=== PATIENT | female | born 1975 | race Caucasian/White ===

== ENCOUNTER 2017-07-29 11:21 | Emergency (ER) | payer MEDICARE, MEDICAID ==
[~2017-07-29] VITALS: Ht 157.5 cm; Wt 76.9 kg
[~2017-07-29 11:21] MED LIST: CLON-527 PO; DIVA500T4 PO; LEVE750T6 PO; PER5325T PO; ZOLP5TAB2 PO
[2017-07-29 12:40] LABS: BASOPHILS # (AUTO) 0.1 X10'3 (0-0.2); BASOPHILS % (AUTO) 0.6 % (0-1); EOSINOPHILS # (AUTO) 0.3 X10'3 (0-0.9); EOSINOPHILS % (AUTO) 3.2 % (0-6); HEMATOCRIT 39.6 % (35.0-45.0); HEMOGLOBIN 13.8 g/dl (12.0-16.0); LYMPHOCYTES # (AUTO) 2.6 X10'3 (1.1-4.8); LYMPHOCYTES % (AUTO) 27.5 % (21-51); MEAN CORPUSCULAR HEMOGLOBIN 30.6 PG (27.0-31.0); MEAN CORPUSCULAR HGB CONC 34.9 % (33.0-36.5); MEAN CORPUSCULAR VOLUME 87.7 FL (78-98); MEAN PLATELET VOLUME 7.2 FL (7.4-10.4); MONOCYTES # (AUTO) 0.4 X10'3 (0-0.9); MONOCYTES % (AUTO) 4.5 % (2-12); NEUTROPHILS # (AUTO) 6.1 X10'3 (1.8-7.7); NEUTROPHILS % (AUTO) 64.2 % (42-75); PLATELET COUNT 381 X10'3 (140-440); RED BLOOD COUNT 4.51 X10'6 (4.20-5.60); RED CELL DISTRIBUTION WIDTH 14.8 % (11.5-14.5); WHITE BLOOD COUNT 9.5 X10'3 (4.5-11.0)
[2017-07-29 12:41] LABS: INR 0.9 INR; PARTIAL THROMBOPLASTIN TIME 26 SECONDS (22-32); PROTHROMBIN TIME 9.4 SECONDS (9.0-12.0)
[2017-07-29 12:48] LABS: ALANINE AMINOTRANSFERASE 35 U/L (12-78); ALBUMIN 3.8 G/DL (3.4-5.0); ALKALINE PHOSPHATASE 141 IU/L (46-116); ANION GAP 10 (8-16); ASPARTATE AMINO TRANSFERASE 16 U/L (10-37); BILIRUBIN,TOTAL 0.2 MG/DL (0.1-1.0); BLOOD UREA NITROGEN 12 MG/DL (7-18); BUN/CREATININE RATIO 17.1 (6.6-38.0); CALCIUM 8.8 MG/DL (8.5-10.1); CHLORIDE 107 MMOL/L (99-107); GLUCOSE 127 MG/DL (70-104); POTASSIUM 3.3 MMOL/L (3.5-5.1); SODIUM 141 MMOL/L (135-145); TOTAL CARBON DIOXIDE 23.9 MMOL/L (24-32); TOTAL PROTEIN 7.6 G/DL (6.4-8.2); eGFR > 90 ML/MIN
[2017-07-29] MEDS ORDERED: acetaminophen 325mg tablet PO ONE (14:30)
[2017-07-29] MEDS ORDERED: dexamethasone 4mg/ml inj IV SCH (14:30)
[2017-07-29] MEDS ORDERED: dexamethasone 4mg/ml inj IV ONE (14:30)
[2017-07-29] MEDS ORDERED: magnesium 2GM in 50ml NS 50 ML IV ONE (14:30)
[2017-07-29] MEDS ORDERED: normal saline 1000ML IV soln IVB ONE (14:30)
[2017-07-29] MEDS ORDERED: ketorolac trometh. 30mg/ml inj. IV ONE (14:30)
[2017-07-29] MEDS ORDERED: meclizine 12.5mg tablet PO ONE (14:30)
[2017-07-29] MEDS ORDERED: aspirin 325mg tablet PO ONE (14:30)
[2017-07-29 16:10] LABS: CLARITY,URINE CLEAR (Clear); COLOR,URINE YELLOW (Yellow); GLUCOSE, URINE NEGATIVE (Neg); KETONES,URINE NEGATIVE (Neg); LEUKOCYTE ESTERASE ,URINE NEGATIVE (Neg); NITRITES, URINE NEGATIVE (Neg); OCCULT BLOOD,URINE NEGATIVE (Neg); PROTEIN,URINE NEGATIVE (Neg); UROBILINOGEN,URINE 0.2 E.U/dL (0.2-1.0)
[2017-07-29 16:15] LABS: UA COLLECTION TYPE CLN CATCH MIDSTREAM
[2017-07-29 16:23] LABS: URINE HCG NEGATIVE (NEG)
[2017-07-29] MEDS ORDERED: morphine 2 MG/ML inj. syringe IV ONE (16:25)
[2017-07-29 17:06] VITALS: BP 133/83
== END 2017-07-29 17:14 | disposition home or self-care (01) ==
LOC: ER 11:22
DX: R07.9 Chest pain, unspecified (principal); G43.909 Migraine, unspecified, not intractable, without status migrainosus; I10 Essential (primary) hypertension; G89.29 Other chronic pain; Z85.3 Personal history of malignant neoplasm of breast; Z98.51 Tubal ligation status; Z90.710 Acquired absence of both cervix and uterus; Z88.8 Allergy status to other drugs, medicaments and biological substances; Z79.899 Other long term (current) drug therapy
CPT/HCPCS: 36415; 71045; 80053; 81003; 81025; 84484; 85025; 85610; 85730; 93005; 96365; 96366; 96375; 99285; J1100; J1885; J2270; J3475; J7030; J8597

== ENCOUNTER 2017-08-04 13:40 | Emergency (ER) | payer MEDICARE, MEDICAID ==
[~2017-08-04] VITALS: Ht 170.2 cm; Wt 79.5 kg
[2017-08-04 14:03] LABS: BASOPHILS % (AUTO) 0.4 % (0-1); EOSINOPHILS # (AUTO) 0.1 X10'3 (0-0.9); EOSINOPHILS % (AUTO) 1.6 % (0-6); HEMATOCRIT 40.6 % (35.0-45.0); HEMOGLOBIN 14.4 g/dl (12.0-16.0); LYMPHOCYTES # (AUTO) 2.8 X10'3 (1.1-4.8); LYMPHOCYTES % (AUTO) 32.1 % (21-51); MEAN CORPUSCULAR HEMOGLOBIN 30.8 PG (27.0-31.0); MEAN CORPUSCULAR HGB CONC 35.3 % (33.0-36.5); MEAN CORPUSCULAR VOLUME 87.2 FL (78-98); MEAN PLATELET VOLUME 7.2 FL (7.4-10.4); MONOCYTES # (AUTO) 0.3 X10'3 (0-0.9); MONOCYTES % (AUTO) 3.6 % (2-12); NEUTROPHILS # (AUTO) 5.4 X10'3 (1.8-7.7); NEUTROPHILS % (AUTO) 62.3 % (42-75); PLATELET COUNT 407 X10'3 (140-440); RED BLOOD COUNT 4.66 X10'6 (4.20-5.60); WHITE BLOOD COUNT 8.7 X10'3 (4.5-11.0)
[2017-08-04 14:19] LABS: ALANINE AMINOTRANSFERASE 29 U/L (12-78); ALKALINE PHOSPHATASE 135 IU/L (46-116); ANION GAP 11 (8-16); ASPARTATE AMINO TRANSFERASE 13 U/L (10-37); BILIRUBIN,TOTAL 0.2 MG/DL (0.1-1.0); BLOOD UREA NITROGEN 8 MG/DL (7-18); CALCIUM 8.8 MG/DL (8.5-10.1); CHLORIDE 108 MMOL/L (99-107); ETHANOL 0.047 GM/DL (0.0-0.010); GLUCOSE 134 MG/DL (70-104); POTASSIUM 3.3 MMOL/L (3.5-5.1); SODIUM 141 MMOL/L (135-145); TOTAL PROTEIN 7.9 G/DL (6.4-8.2); eGFR 78 ML/MIN
[2017-08-04] MEDS ORDERED: haloperidol lactate 5mg/ml inj IM ONE ×2 (15:05→15:07)
[2017-08-04] MEDS ORDERED: diphenhydrAMINE 50 mg/ml inj IM ONE (15:05)
[2017-08-04] MEDS ORDERED: LORazepam 2 mg/ml vial IV ONE (15:05)
[2017-08-04 16:19] LABS: URINE HCG NEGATIVE (NEG)
[2017-08-04 16:25] LABS: ACETAMINOPHEN < 2.0 UG/ML (10-30)
[2017-08-04 16:44] LABS: URINE AMPHETAMINE SCREEN NEGATIVE (Neg); URINE BARBITUATE SCREEN NEGATIVE (Neg); URINE BENZODIAZEPINES SCREEN NEGATIVE (Neg); URINE CANNABINOID SCREEN NEGATIVE (Neg); URINE COCAINE SCREEN NEGATIVE (Neg); URINE METHADONE SCREEN NEGATIVE (Neg); URINE OPIATE SCREEN POSITIVE (Neg); URINE PHENCYCLIDINE SCREEN NEGATIVE (Neg)
[2017-08-05] MEDS ORDERED: quetiapine 100mg tablet PO ONE (04:00)
[2017-08-05] MEDS ORDERED: acetaminophen 325mg tablet PO PRN (07:40)
[2017-08-05] MEDS ORDERED: DIPH25CA83 PO (08:58)
[2017-08-05] MEDS ORDERED: TRAZ-146 PO (08:58)
[2017-08-05] MEDS ORDERED: TOPI100T18 PO (08:59)
[2017-08-05] MEDS ORDERED: HYDR-565 PO (09:00)
[2017-08-05] MEDS ORDERED: DIPH50CA37 PO (09:04)
[2017-08-05] MEDS ORDERED: potassium Cl 20 mEq SR tablet PO STA (09:33)
[2017-08-05] MEDS ORDERED: SUMA100T16 PO (09:39)
[2017-08-05] MEDS ORDERED: ONDA8TAB9 PO (09:51)
[2017-08-05] MEDS ORDERED: SUMAtriptan 25 MG tablet PO PRN (11:00)
[2017-08-05] MEDS ORDERED: HYDROcodone/acetaminophen 10/325mg tab PO PRN (11:00)
[2017-08-05] MEDS ORDERED: ondansetron 4mg rapidly disintigrating tab PO PRN (11:00)
[2017-08-05] MEDS ORDERED: diphenhydrAMINE 25mg capsule PO PRN (11:00)
[2017-08-05 13:01] LABS: ALANINE AMINOTRANSFERASE 27 U/L (12-78); ALBUMIN 4.2 G/DL (3.4-5.0); ALBUMIN/GLOBULIN RATIO 1.1 (1.1-1.5); ALKALINE PHOSPHATASE 154 IU/L (46-116); ASPARTATE AMINO TRANSFERASE 17 U/L (10-37); BILIRUBIN,DIRECT 0.1 MG/DL (0-0.3); BILIRUBIN,TOTAL 0.4 MG/DL (0.1-1.0); TOTAL PROTEIN 8.1 G/DL (6.4-8.2)
[2017-08-05 15:21] VITALS: BP 106/73
[2017-08-05] MEDS ORDERED: topiramate 100mg tablet PO SCH (20:00)
[2017-08-05] MEDS ORDERED: quetiapine 100mg tablet PO SCH (21:00)
[2017-08-05] MEDS ORDERED: levetiracetam 250mg tablet PO SCH (21:00)
[2017-08-05] MEDS ORDERED: diphenhydrAMINE 25mg capsule PO SCH (21:00)
[2017-08-06] MEDS ORDERED: traZODone 50mg tablet PO SCH (08:00)
== END 2017-08-05 15:25 ==
LOC: ER 13:45
DX: T42.6X2A Poisoning by other antiepileptic and sedative-hypnotic drugs, intentional self-harm, initial encounter (principal); G43.909 Migraine, unspecified, not intractable, without status migrainosus; I10 Essential (primary) hypertension; G89.29 Other chronic pain; Z90.710 Acquired absence of both cervix and uterus; Z85.3 Personal history of malignant neoplasm of breast; Z88.8 Allergy status to other drugs, medicaments and biological substances; Z79.899 Other long term (current) drug therapy; Y92.89 Other specified places as the place of occurrence of the external cause
CPT/HCPCS: 36415; 73130; 80053; 80076; 80305; 80320; 80329; 81025; 85025; 96372; 96374; 99285; J1200; J1630; J2060

== ENCOUNTER 2017-12-23 11:35 | Emergency (ER) | payer MEDICARE, MEDICAID ==
[~2017-12-23] VITALS: Ht 162.6 cm; Wt 68.0 kg
[~2017-12-23 11:35] MED LIST changes: -CLON-527 PO; +DIPH25CA83 PO; +DIPH50CA37 PO; -DIVA500T4 PO; +HYDR-565 PO; +ONDA8TAB9 PO; -PER5325T PO; +SUMA100T16 PO; +TOPI100T18 PO; +TRAZ-146 PO; -ZOLP5TAB2 PO
[2017-12-23 11:59] VITALS: BP 171/110
[2017-12-23] MEDS ORDERED: metoclopramide 5 mg/ml inj IV ONE (16:35)
[2017-12-23] MEDS ORDERED: ketorolac tromethamine 15mg/ml inj. IM ONE (16:35)
[2017-12-23] MEDS ORDERED: diphenhydrAMINE 25mg capsule PO ONE (16:35)
[2017-12-23] MEDS ORDERED: levetiracetam 250mg tablet PO ONE ×2 (18:15→18:20)
[2017-12-23] MEDS ORDERED: topiramate 100mg tablet PO ONE ×2 (18:15→18:20)
== END 2017-12-23 20:18 | disposition home or self-care (01) ==
LOC: ER 11:36
DX: G43.909 Migraine, unspecified, not intractable, without status migrainosus (principal); I10 Essential (primary) hypertension; G89.29 Other chronic pain; F32.9 Major depressive disorder, single episode, unspecified; Z85.3 Personal history of malignant neoplasm of breast; Z98.51 Tubal ligation status; Z90.710 Acquired absence of both cervix and uterus; F17.210 Nicotine dependence, cigarettes, uncomplicated; Z88.8 Allergy status to other drugs, medicaments and biological substances
CPT/HCPCS: 96372; 96374; 99284; J1885; J2765; Q0163

== ENCOUNTER 2017-12-30 15:29 | Emergency (ER) | payer MEDICARE, MEDICAID ==
[~2017-12-30] VITALS: Ht 162.6 cm; Wt 75.0 kg
[2017-12-30 15:43] VITALS: BP 141/62
[2017-12-30] MEDS ORDERED: LORazepam 1 MG tablet PO ONE (15:50)
== END 2017-12-30 15:58 | disposition home or self-care (01) ==
LOC: ER 15:30
DX: G43.909 Migraine, unspecified, not intractable, without status migrainosus (principal); I10 Essential (primary) hypertension; G89.29 Other chronic pain; Z85.3 Personal history of malignant neoplasm of breast; Z90.710 Acquired absence of both cervix and uterus; Z98.890 Other specified postprocedural states; Z88.8 Allergy status to other drugs, medicaments and biological substances; Z79.899 Other long term (current) drug therapy
CPT/HCPCS: 99282

== ENCOUNTER 2018-02-21 12:00 | Emergency (ER) | payer MEDICARE, MEDICAID ==
[~2018-02-21] VITALS: Ht 565.3 cm; Wt 74.7 kg
[~2018-02-21 12:00] MED LIST changes: -TRAZ-146 PO; +TRAZ-219 PO
[2018-02-21 12:09] VITALS: BP 167/110
== END 2018-02-21 12:35 | disposition home or self-care (01) ==
LOC: ER 12:01
DX: F07.81 Postconcussional syndrome (principal); G89.29 Other chronic pain; R51 Headache; G43.909 Migraine, unspecified, not intractable, without status migrainosus; I10 Essential (primary) hypertension; Z90.710 Acquired absence of both cervix and uterus; Z90.89 Acquired absence of other organs; Z88.8 Allergy status to other drugs, medicaments and biological substances; Z88.6 Allergy status to analgesic agent; Z79.899 Other long term (current) drug therapy
CPT/HCPCS: 99281

== ENCOUNTER 2018-09-19 19:30 | Emergency (ER) | payer MEDICARE, MEDICAID ==
[~2018-09-19] VITALS: Ht 162.6 cm; Wt 75.0 kg
[~2018-09-19 19:30] MED LIST changes: +HYDR-4353 PO; -HYDR-565 PO; +TOP100T PO; -TOPI100T18 PO
[2018-09-19] MEDS ORDERED: normal saline 1000ML IV soln IVB ONE (20:20)
[2018-09-19] MEDS ORDERED: dexamethasone sod phosphate 10mg/ml inj IV STA (20:20)
[2018-09-19] MEDS ORDERED: ketorolac trometh. 30mg/ml inj. IV ONE (20:20)
[2018-09-19] MEDS ORDERED: ondansetron/PF 4mg/2ml inj IV ONE (20:20)
[2018-09-19] MEDS ORDERED: LORazepam 2 mg/ml vial IV ONE (20:20)
[2018-09-19 21:03] VITALS: BP 166/93
== END 2018-09-19 21:15 | disposition home or self-care (01) ==
LOC: ER 19:45
DX: G43.909 Migraine, unspecified, not intractable, without status migrainosus (principal); I10 Essential (primary) hypertension; G89.29 Other chronic pain; Z90.710 Acquired absence of both cervix and uterus; Z98.51 Tubal ligation status; Z90.49 Acquired absence of other specified parts of digestive tract; Z90.12 Acquired absence of left breast and nipple; Z88.6 Allergy status to analgesic agent; Z88.8 Allergy status to other drugs, medicaments and biological substances
CPT/HCPCS: 96374; 96375; 99283; J1100; J1885; J2060; J2405; J7030

== ENCOUNTER 2019-01-20 13:15 | Emergency (ER) | payer MEDICARE, MEDICAID ==
[~2019-01-20] VITALS: Ht 160 cm; Wt 73.5 kg
[2019-01-20 13:36] VITALS: BP 169/105
[2019-01-20] MEDS ORDERED: diphenhydrAMINE 50 mg/ml inj IV ONE (15:15)
[2019-01-20] MEDS ORDERED: normal saline 1000ML IV soln IVB ONE (15:15)
[2019-01-20] MEDS ORDERED: acetaminophen 325mg tablet PO ONE ×2 (15:20)
[2019-01-20] MEDS: metoclopramide 5 mg/ml inj IV ONE ×2 (15:43→15:50)
[2019-01-20] MEDS ORDERED: LORazepam 2 mg/ml vial IV ONE (15:55)
[2019-01-20] MEDS ORDERED: ketorolac tromethamine 15mg/ml inj. IV ONE (15:55)
--- NOTE | 2019-01-20 17:10 | NUR ---
PT REPORTED 3 TIMEDS THAT HER SON WAS GOING TO PICK HER UP DUE TO MEDICATIONS THAT WE WERE GIVING HER. I WALKED PT OUT TO THE VICE PRESIDENT OF SOFTWARE [employer]INEER[employer] OF THE ER AND LOST DIGHT OF HER IN THE PARKING LOT, I WALKED TO THE AMBULANCE BAY AND SAW THE PT GET INTO A WHITE MUSTANG WITH WHITE CONVERTABLE TOP AND LEAVE THE ER PARKING LOT. [facility] WAS NOTIFIED AT .
== END 2019-01-20 17:29 | disposition home or self-care (01) ==
LOC: ER 13:16
DX: G43.709 Chronic migraine without aura, not intractable, without status migrainosus (principal); I10 Essential (primary) hypertension; G89.29 Other chronic pain; F32.9 Major depressive disorder, single episode, unspecified; Z86.69 Personal history of other diseases of the nervous system and sense organs; Z90.710 Acquired absence of both cervix and uterus; Z90.89 Acquired absence of other organs; Z98.51 Tubal ligation status; Z98.890 Other specified postprocedural states; Z90.12 Acquired absence of left breast and nipple; Z85.3 Personal history of malignant neoplasm of breast; Z88.6 Allergy status to analgesic agent; Z88.8 Allergy status to other drugs, medicaments and biological substances; Z79.899 Other long term (current) drug therapy
CPT/HCPCS: 96374; 96375; 99283; J1200; J1885; J2060; J2765; J7030; 99284

== ENCOUNTER 2019-04-20 16:28 | Emergency (ER) | payer MEDICARE, MEDICAID ==
[~2019-04-20] VITALS: Ht 160 cm; Wt 77.9 kg
[2019-04-20 18:14] LABS: BASOPHILS # (AUTO) 0.1 X10'3 (0-0.2); EOSINOPHILS # (AUTO) 0.2 X10'3 (0-0.9); EOSINOPHILS % (AUTO) 1.7 % (0-6); HEMATOCRIT 40.1 % (35.0-45.0); HEMOGLOBIN 13.9 g/dl (12.0-16.0); LYMPHOCYTES # (AUTO) 2.8 X10'3 (1.1-4.8); LYMPHOCYTES % (AUTO) 27.5 % (21-51); MEAN CORPUSCULAR HEMOGLOBIN 30.4 PG (27.0-31.0); MEAN CORPUSCULAR HGB CONC 34.6 g/dL (33.0-36.5); MEAN CORPUSCULAR VOLUME 87.9 FL (78-98); MEAN PLATELET VOLUME 7.3 FL (7.4-10.4); MONOCYTES # (AUTO) 0.4 X10'3 (0-0.9); MONOCYTES % (AUTO) 4.1 % (2-12); NEUTROPHILS # (AUTO) 6.6 X10'3 (1.8-7.7); NEUTROPHILS % (AUTO) 65.7 % (42-75); PLATELET COUNT 395 X10'3 (140-440); RED BLOOD COUNT 4.56 X10'6 (4.20-5.60); RED CELL DISTRIBUTION WIDTH 14.8 % (11.5-14.5)
[2019-04-20 18:29] LABS: ALANINE AMINOTRANSFERASE 32 U/L (12-78); ALBUMIN 3.9 G/DL (3.4-5.0); ALBUMIN/GLOBULIN RATIO 0.9 (1.1-1.5); ALKALINE PHOSPHATASE 134 IU/L (46-116); ANION GAP 14 (8-16); ASPARTATE AMINO TRANSFERASE 16 U/L (10-37); BILIRUBIN,TOTAL 0.2 MG/DL (0.1-1.0); BLOOD UREA NITROGEN 7 MG/DL (7-18); BUN/CREATININE RATIO 8.9 (6.6-38.0); CALCIUM 9.2 MG/DL (8.5-10.1); CHLORIDE 105 MMOL/L (99-107); CREATININE 0.79 MG/DL (0.40-0.90); GLUCOSE 141 MG/DL (70-104); SODIUM 141 MMOL/L (135-145); TOTAL PROTEIN 8.3 G/DL (6.4-8.2); eGFR 79 ML/MIN
[2019-04-20 19:00] LABS: CLARITY,URINE CLEAR (Clear); COLOR,URINE YELLOW (Yellow); GLUCOSE, URINE NEGATIVE (Neg); KETONES,URINE NEGATIVE (Neg); LEUKOCYTE ESTERASE ,URINE NEGATIVE (Neg); NITRITES, URINE NEGATIVE (Neg); OCCULT BLOOD,URINE NEGATIVE (Neg); PH,URINE 6.5 (4.8-8.0); PROTEIN,URINE NEGATIVE (Neg); UROBILINOGEN,URINE 0.2 E.U/dL (0.2-1.0)
[2019-04-20 19:02] LABS: UA COLLECTION TYPE CLN CATCH MIDSTREAM
[2019-04-20] MEDS ORDERED: potassium Cl 20 mEq SR tablet PO STA (19:31)
[2019-04-20] MEDS ORDERED: diphenhydrAMINE 50 mg/ml inj IV ONE (19:45)
[2019-04-20] MEDS ORDERED: aspirin 325mg tablet PO ONE (19:45)
[2019-04-20] MEDS ORDERED: metoclopramide 5 mg/ml inj IV ONE (19:45)
[2019-04-20] MEDS ORDERED: ketorolac trometh. 30mg/ml inj. IV ONE (19:45)
[2019-04-20] MEDS ORDERED: normal saline 1000ml 1,000 ML IV ONE (19:45)
[2019-04-20] MEDS ORDERED: magnesium 2GM in 50ml NS 50 ML IV ONE (19:45)
[2019-04-20 20:55] VITALS: BP 134/85
== END 2019-04-20 21:02 | disposition home or self-care (01) ==
LOC: ER 16:29
DX: G43.909 Migraine, unspecified, not intractable, without status migrainosus (principal); I10 Essential (primary) hypertension; G89.29 Other chronic pain; F32.9 Major depressive disorder, single episode, unspecified; Z85.3 Personal history of malignant neoplasm of breast; Z86.69 Personal history of other diseases of the nervous system and sense organs; Z90.710 Acquired absence of both cervix and uterus; Z90.89 Acquired absence of other organs; Z98.51 Tubal ligation status; Z98.890 Other specified postprocedural states; Z88.6 Allergy status to analgesic agent; Z88.8 Allergy status to other drugs, medicaments and biological substances; Z79.899 Other long term (current) drug therapy
CPT/HCPCS: 36415; 70450; 80053; 81003; 85025; 85610; 96365; 96366; 96375; 99284; J1200; J1885; J2765; J3475; J7030

== ENCOUNTER 2020-04-26 19:36 | Emergency (ER) | payer MEDICARE, MEDICAID ==
[~2020-04-26] VITALS: Ht 160 cm; Wt 76.0 kg
[~2020-04-26 19:36] MED LIST changes: -TRAZ-219 PO; +TRAZ-256 PO
[2020-04-26] MEDS ORDERED: normal saline 1000ml 1,000 ML IV ONE ×2 (20:20)
[2020-04-26] MEDS ORDERED: metoclopramide 5 mg/ml inj IV ONE (20:20)
[2020-04-26] MEDS ORDERED: ondansetron 4mg rapidly disintigrating tab PO ONE (20:20)
[2020-04-26] MEDS ORDERED: diphenhydrAMINE 50 mg/ml inj IV ONE (20:20)
[2020-04-26 21:20] VITALS: BP 135/74
[2020-04-26] MEDS ORDERED: ketorolac tromethamine 15mg/ml inj. IV ONE (21:40)
[2020-04-26] MEDS ORDERED: LORazepam 2 mg/ml vial IV ONE (22:25)
== END 2020-04-26 23:21 | disposition home or self-care (01) ==
LOC: ER 19:39
DX: G43.909 Migraine, unspecified, not intractable, without status migrainosus (principal); I10 Essential (primary) hypertension; G89.29 Other chronic pain; F32.9 Major depressive disorder, single episode, unspecified; Z98.51 Tubal ligation status; Z90.710 Acquired absence of both cervix and uterus; Z98.890 Other specified postprocedural states; Z88.8 Allergy status to other drugs, medicaments and biological substances; Z79.899 Other long term (current) drug therapy
CPT/HCPCS: 96361; 96374; 96375; 99284; J1200; J1885; J2060; J2765; J7030

== ENCOUNTER 2020-04-27 11:55 | Emergency (ER) | payer MEDICARE, MEDICAID ==
[~2020-04-27] VITALS: Ht 162.6 cm; Wt 75.0 kg
[2020-04-27] MEDS ORDERED: dexamethasone sod phosphate 10mg/ml inj IV STA (12:53)
[2020-04-27] MEDS ORDERED: normal saline 1000ML IV soln IVB ONE (12:55)
[2020-04-27] MEDS ORDERED: diphenhydrAMINE 50 mg/ml inj IV ONE (12:55)
[2020-04-27] MEDS ORDERED: proCHLORperazine 10 MG/2 ml inj IV ONE (12:55)
[2020-04-27] MEDS ORDERED: LIDOcaine 4% (40 mg/ml) topical solution 50ml TP ONE (12:55)
[2020-04-27 13:59] VITALS: BP 146/95
[2020-04-27] MEDS ORDERED: ketorolac tromethamine 15mg/ml inj. IV ONE (14:05)
[2020-04-27] MEDS ORDERED: morphine 4 MG/ML inj SYRINge IV ONE (14:45)
== END 2020-04-27 15:50 | disposition home or self-care (01) ==
LOC: ER 11:56
DX: R51.9 Headache, unspecified (principal); R11.0 Nausea; H53.149 Visual discomfort, unspecified; I10 Essential (primary) hypertension; G89.29 Other chronic pain; F32.9 Major depressive disorder, single episode, unspecified; Z90.710 Acquired absence of both cervix and uterus; Z98.51 Tubal ligation status; Z98.890 Other specified postprocedural states; Z88.8 Allergy status to other drugs, medicaments and biological substances; Z79.899 Other long term (current) drug therapy
CPT/HCPCS: 70250; 72082; 96361; 96374; 96375; 99284; J1100; J1200; J1885; J2270; J7030

== ENCOUNTER 2021-05-08 18:37 | Emergency (ER) | payer MEDICARE, MEDICAID ==
[~2021-05-08] VITALS: Ht 160 cm; Wt 77.3 kg
[2021-05-08 20:10] LABS: BASOPHILS # (AUTO) 0.1 X10'3 (0-0.2); BASOPHILS % (AUTO) 0.7 % (0-1); EOSINOPHILS # (AUTO) 0.2 X10'3 (0-0.9); EOSINOPHILS % (AUTO) 2.6 % (0-6); HEMATOCRIT 36.7 % (35.0-45.0); HEMOGLOBIN 12.7 g/dl (12.0-16.0); LYMPHOCYTES # (AUTO) 2.9 X10'3 (1.1-4.8); LYMPHOCYTES % (AUTO) 38.2 % (21-51); MEAN CORPUSCULAR HEMOGLOBIN 29.8 PG (27.0-31.0); MEAN CORPUSCULAR HGB CONC 34.7 g/dL (33.0-36.5); MEAN CORPUSCULAR VOLUME 85.9 FL (78-98); MEAN PLATELET VOLUME 7.4 FL (7.4-10.4); MONOCYTES # (AUTO) 0.4 X10'3 (0-0.9); MONOCYTES % (AUTO) 4.7 % (2-12); NEUTROPHILS # (AUTO) 4.1 X10'3 (1.8-7.7); NEUTROPHILS % (AUTO) 53.8 % (42-75); PLATELET COUNT 338 X10'3 (140-440); RED BLOOD COUNT 4.28 X10'6 (4.20-5.60); RED CELL DISTRIBUTION WIDTH 14.2 % (11.5-14.5); WHITE BLOOD COUNT 7.7 X10'3 (4.5-11.0)
[2021-05-08 20:28] LABS: ALANINE AMINOTRANSFERASE 20 U/L (12-78); ALBUMIN 3.4 G/DL (3.4-5.0); ALBUMIN/GLOBULIN RATIO 0.9 (1.1-1.5); ALKALINE PHOSPHATASE 118 IU/L (46-116); ANION GAP 10 (8-16); ASPARTATE AMINO TRANSFERASE 13 U/L (10-37); BILIRUBIN,TOTAL 0.1 MG/DL (0.1-1.0); BLOOD UREA NITROGEN 8 MG/DL (7-18); BUN/CREATININE RATIO 8.9 (6.6-38.0); CALCIUM 8.5 MG/DL (8.5-10.1); CHLORIDE 107 MMOL/L (99-107); GLUCOSE 170 MG/DL (70-104); POTASSIUM 3.1 MMOL/L (3.5-5.1); SODIUM 139 MMOL/L (135-145); TOTAL CARBON DIOXIDE 21.8 MMOL/L (24-32); TOTAL PROTEIN 7.3 G/DL (6.4-8.2); eGFR 67 ML/MIN
[2021-05-08 22:38] VITALS: BP 139/79
[2021-05-08] MEDS ORDERED: HYDROcodone/acetaminophen 5mg/325mg tablet PO ONE (23:25)
== END 2021-05-09 00:57 | disposition home or self-care (01) ==
LOC: ER 18:39
DX: R07.89 Other chest pain (principal); G43.909 Migraine, unspecified, not intractable, without status migrainosus; I10 Essential (primary) hypertension; G89.29 Other chronic pain; F32.9 Major depressive disorder, single episode, unspecified; Z86.69 Personal history of other diseases of the nervous system and sense organs; Z85.3 Personal history of malignant neoplasm of breast; Z90.710 Acquired absence of both cervix and uterus; Z98.51 Tubal ligation status; Z98.890 Other specified postprocedural states; Z88.8 Allergy status to other drugs, medicaments and biological substances; Z88.6 Allergy status to analgesic agent; Z79.899 Other long term (current) drug therapy
CPT/HCPCS: 36415; 71045; 80053; 84484; 85025; 93005; 99285

== ENCOUNTER 2022-01-13 21:36 | Emergency (ER) | payer MEDICARE, MEDICAID ==
[~2022-01-13] VITALS: Ht 160 cm; Wt 77.0 kg
--- NOTE | 2022-01-13 23:54 | NUR ---
PT C/O RT FACE NUMBNESS NOW, NO SLURRED SPEECH, NO ARM DRIFT, NO FACIAL DROOP, "HEADACHE IS GETTING WORSE"
[2022-01-14] MEDS ORDERED: ketorolac trometh inj. 60 MG/2 ML VIAL IM ONE (01:30)
[2022-01-14] MEDS ORDERED: diphenhydrAMINE 50 mg/ml inj IM ONE (01:30)
[2022-01-14] MEDS ORDERED: ondansetron 4mg rapidly disintigrating tab PO ONE (01:30)
[2022-01-14 03:38] VITALS: BP 174/102
== END 2022-01-14 03:41 | disposition home or self-care (01) ==
LOC: ER 21:37
DX: G43.909 Migraine, unspecified, not intractable, without status migrainosus (principal); I10 Essential (primary) hypertension; G89.29 Other chronic pain; F32.9 Major depressive disorder, single episode, unspecified; Z90.710 Acquired absence of both cervix and uterus; Z90.89 Acquired absence of other organs; Z98.51 Tubal ligation status; Z98.890 Other specified postprocedural states; Z88.8 Allergy status to other drugs, medicaments and biological substances; Z88.6 Allergy status to analgesic agent; Z79.899 Other long term (current) drug therapy
CPT/HCPCS: 96372; 99284; J1200; J1885

== ENCOUNTER 2022-02-02 20:09 | Emergency (ER) | payer MEDICARE, MEDICAID ==
[~2022-02-02] VITALS: Ht 160 cm; Wt 77.3 kg
[2022-02-02] MEDS ORDERED: TRAZ300T2 PO (23:17)
[2022-02-02] MEDS ORDERED: METO10TA3 (23:17)
[2022-02-03] MEDS ORDERED: diphenhydrAMINE 25mg capsule PO ONE (01:05)
[2022-02-03] MEDS ORDERED: ketorolac trometh. 30mg/ml inj. IM ONE (01:05)
[2022-02-03] MEDS ORDERED: metoclopramide 5 mg/ml inj IM ONE (01:05)
[2022-02-03 01:25] VITALS: BP 134/99
[2022-02-03] MEDS ORDERED: HYDROcodone/acetaminophen 10/325mg tab PO ONE (01:30)
== END 2022-02-03 01:37 | disposition home or self-care (01) ==
LOC: ER 20:11
DX: G43.909 Migraine, unspecified, not intractable, without status migrainosus (principal); G40.909 Epilepsy, unspecified, not intractable, without status epilepticus; I10 Essential (primary) hypertension; G89.29 Other chronic pain; F17.200 Nicotine dependence, unspecified, uncomplicated; Z90.12 Acquired absence of left breast and nipple; Z90.710 Acquired absence of both cervix and uterus; Z85.9 Personal history of malignant neoplasm, unspecified; Z98.51 Tubal ligation status; Z88.8 Allergy status to other drugs, medicaments and biological substances; Z79.899 Other long term (current) drug therapy
CPT/HCPCS: 96372; 99284; J1885; J2765; Q0163

== ENCOUNTER 2022-09-28 20:57 | Emergency (ER) | payer MEDICARE, MEDICAID ==
[~2022-09-28] VITALS: Ht 162.6 cm; Wt 79.5 kg
[~2022-09-28 20:57] MED LIST changes: -DIPH25CA83 PO; +METO10TA3; -TRAZ-256 PO; +TRAZ300T2 PO
[2022-09-28 21:06] VITALS: BP 161/95
[2022-09-28] MEDS ORDERED: AZIT-31 PO (23:13)
[2022-09-28] MEDS ORDERED: azithromycin 250mg tablet PO ONE (23:15)
[2022-09-28] MEDS ORDERED: ketorolac trometh inj. 60 MG/2 ML VIAL IM ONE (23:15)
== END 2022-09-28 23:37 | disposition home or self-care (01) ==
LOC: ER 20:58
DX: J32.9 Chronic sinusitis, unspecified (principal); I10 Essential (primary) hypertension; G43.909 Migraine, unspecified, not intractable, without status migrainosus; Z88.8 Allergy status to other drugs, medicaments and biological substances; Z98.51 Tubal ligation status
CPT/HCPCS: 71046; 96372; 99283; J1885

== ENCOUNTER 2022-12-24 20:40 | Emergency (ER) | payer MEDICARE, MEDICAID ==
[~2022-12-24] VITALS: Ht 160 cm; Wt 78.4 kg
[2022-12-25] MEDS ORDERED: DOXYCYCLINE 100MG CAPSULE PO STA (00:31)
[2022-12-25] MEDS ORDERED: DOXY-356 PO (00:32)
[2022-12-25] MEDS ORDERED: diphenhydrAMINE 50 mg/ml inj IM STA (00:41)
[2022-12-25] MEDS ORDERED: proCHLORperazine 10 MG/2 ml inj IM STA (00:41)
--- NOTE | 2022-12-25 00:42 | NUR ---
upon dc pt very upset she didn't tell the doctor about her migraine. pt states she has taken ibuprofen, tylenol, imitrex. PA made aware and meds ordered.
[2022-12-25] MEDS ORDERED: ketorolac trometh. 30mg/ml inj. IM STA (00:44)
--- NOTE | 2022-12-25 00:44 | NUR ---
she cannot have compazine, so switched it to torodol after talking to PA about this.
[2022-12-25 00:53] VITALS: BP 125/74
== END 2022-12-25 00:54 | disposition home or self-care (01) ==
LOC: ER 20:40
DX: S80.862A Insect bite (nonvenomous), left lower leg, initial encounter (principal); G43.909 Migraine, unspecified, not intractable, without status migrainosus; I10 Essential (primary) hypertension; F32.A Depression, unspecified; Z88.8 Allergy status to other drugs, medicaments and biological substances; Z88.6 Allergy status to analgesic agent; Z79.899 Other long term (current) drug therapy; W57.XXXA Bitten or stung by nonvenomous insect and other nonvenomous arthropods, initial encounter; Y93.89 Activity, other specified; Y92.89 Other specified places as the place of occurrence of the external cause; Y99.8 Other external cause status
CPT/HCPCS: 96372; 99284; J1200; J1885